=== PATIENT | male | born 1955 | race Caucasian/White ===

== ENCOUNTER 2025-01-16 06:56 | Emergency (ER) | payer OTHER, MEDICAID ==
[2025-01-16 07:18] LABS: #Basophils 0.1 thou/uL (0.0-0.2); #Eosinophils 0.0 thou/uL (0.0-0.7); #Lymphocytes 1.6 thou/uL (1.20-3.40); #Monocytes 1.2 thou/uL (0.11-0.59); #Neutrophils 14.2 thou/uL (1.40-6.50); %Basophils 0.4 % (0.0-1.0); %Eosinophils 0.0 % (0.0-10.0); %Lymphocytes 9.3 % (21.0-51.0); %Monocytes 6.9 % (0.0-10.0); %Neutrophils 83.4 % (42.0-75.0); Hematocrit 44.4 % (42.0-52.0); Hemoglobin 14.9 g/dL (14.0-18.0); Mean Corpuscular Hemoglobin 31.1 pg (27.0-31.0); Mean Corpuscular Volume 92.4 fl (78.0-98.0); Platelet Count 249 10x3/uL (130-400); Red Blood Cell (RBC) Count 4.80 mill/uL (4.70-6.10); White Blood Cell (WBC) Count 17.1 10x3/uL (4.8-10.8)
[2025-01-16] MEDS ORDERED: dilTIAZem 25 MG/5 ML VIAL ONE (07:26)
[2025-01-16 07:44] LABS: Troponin I 0.173 ng/mL (< 0.028)
[2025-01-16 07:49] LABS: ALT (SGPT) 2111 U/L (Less than 45); Albumin 3.5 g/dL (3.1-4.5); Alkaline Phosphatase 107 U/L (40-110); Anion Gap 33 mmol/L (10-20); BUN (Urea Nitrogen) 55 mg/dL (8.4-25.7); Bilirubin, Total 3.5 mg/dL (0.3-1.2); Calc. Creatinine Clearance 0 mL/min (70-130); Calcium 9.2 mg/dL (7.8-10.44); Chloride 96 mmol/L (98-107); Globulin 3.2 g/dL (2.4-3.5); Glucose 68 mg/dL (80-115); Sodium 130 mmol/L (136-145)
[2025-01-16 07:54] LABS: Carbon Dioxide 8 mmol/L (23-31); Potassium 6.6 mmol/L (3.5-5.1)
[2025-01-16 07:58] LABS: AST (SGOT) Greater than 4001 U/L (11-34)
[2025-01-16] MEDS ORDERED: Albuterol 2.5 MG (3 mL) NEB ONE (07:58)
[2025-01-16] MEDS ORDERED: Albuterol 2.5 MG (0.5 mL) NEB ONE (07:59)
[2025-01-16] MEDS ORDERED: Dextrose 50% Abboject 50 ML SYRINGE ONE (08:07)
[2025-01-16] MEDS ORDERED: Calcium Gluc 4.6 MEQ/10 ML (100 MG/ML) ONE (08:08)
[2025-01-16] MEDS ORDERED: Calcium Chloride 1 GM/10 ML Abboject SYRINGE ONE (08:08)
[2025-01-16 08:12] LABS: Bicarbonate (HCO3v) 12.4 mmol/L (22.0-28.0); CO2 Tension (PvCO2) 32.4 mmHg (42.0-51.0); Calcium, Ionized 1.07 mmol/L (1.15-1.33); Chloride 101 mmol/L (98-107); Hemoglobin - Calc 16.6 g/dL (14.0-18.0); Potassium 5.9 mmol/L (3.5-5.1); Sodium 130 mmol/L (138-145); T. Carbon Dioxide 13.4 mmol/L (22.0-28.0); vO2 Saturation-calc 87.7 % (60.0-85.0)
[2025-01-16] MEDS ORDERED: Heparin 10,000 UNITS/ 10 ML VIAL ONE (08:20)
[2025-01-16] MEDS ORDERED: Cefepime 2 GM VIAL ONE (08:25)
[2025-01-17 13:55] LABS: Bicarbonate (HCO3v) 11.4 mmol/L (22.0-28.0); CO2 Tension (PvCO2) 27.6 mmHg (42.0-51.0); Calcium, Ionized 1.01 mmol/L (1.15-1.33); Chloride 101.0 mmol/L (98-107); Hemoglobin - Calc 15.2 g/dL (14.0-18.0); Potassium 5.8 mmol/L (3.5-5.1); Sodium 129.0 mmol/L (138-145); T. Carbon Dioxide 12.3 mmol/L (22.0-28.0); vO2 Saturation-calc 97.5 % (60.0-85.0)
== END 2025-01-16 09:15 | disposition short-term general hospital (02) ==
LOC: BURERS 06:56
DX: I48.91 Unspecified atrial fibrillation (principal); E87.5 Hyperkalemia; E87.20 Acidosis, unspecified; R06.89 Other abnormalities of breathing; R74.01 Elevation of levels of liver transaminase levels; F17.210 Nicotine dependence, cigarettes, uncomplicated
CPT/HCPCS: 36415; 71045; 80053; 82330; 82550; 82803; 83605; 83880; 84484; 85025; 85730; 87040; 93005; 96365; 96366; 96368; 96375; J0612; J0692; J1644; J1815; J2270; J7611; J7999

== ENCOUNTER 2025-02-09 15:34 | Emergency (ER) | payer OTHER, MEDICAID ==
[2025-02-09] MEDS ORDERED: Aspirin Chewable 81 MG TAB ONE (16:00)
[2025-02-09] MEDS ORDERED: Acetaminophen 500 MG TAB ONE (16:00)
[2025-02-09 16:23] LABS: #Basophils 0.1 thou/uL (0.0-0.2); #Eosinophils 0.2 thou/uL (0.0-0.7); #Lymphocytes 1.0 thou/uL (1.20-3.40); #Monocytes 0.5 thou/uL (0.11-0.59); #Neutrophils 4.7 thou/uL (1.40-6.50); %Basophils 1.3 % (0.0-1.0); %Eosinophils 3.4 % (0.0-10.0); %Lymphocytes 15.7 % (21.0-51.0); %Monocytes 7.1 % (0.0-10.0); %Neutrophils 72.5 % (42.0-75.0); Hematocrit 39.4 % (42.0-52.0); Hemoglobin 13.6 g/dL (14.0-18.0); Mean Corpuscular Hemoglobin 30.6 pg (27.0-31.0); Mean Corpuscular Volume 88.5 fl (78.0-98.0); Platelet Count 424 10x3/uL (130-400); Red Blood Cell (RBC) Count 4.45 mill/uL (4.70-6.10); White Blood Cell (WBC) Count 6.4 10x3/uL (4.8-10.8)
[2025-02-09 16:29] LABS: INR-International Normal Ratio 1.2; Prothrombin Time 14.9 sec (12.0-14.7)
[2025-02-09 16:30] LABS: PTT 35.7 sec (22.9-36.1)
[2025-02-09 16:36] LABS: Troponin I Less than 0.010 ng/mL (< 0.028)
[2025-02-09 16:37] LABS: ALT (SGPT) 43 U/L (Less than 45); AST (SGOT) 45 U/L (11-34); Albumin 3.4 g/dL (3.1-4.5); Alkaline Phosphatase 92 U/L (40-110); Anion Gap 16 mmol/L (10-20); BUN (Urea Nitrogen) 11 mg/dL (8.4-25.7); Bilirubin, Total 1.4 mg/dL (0.3-1.2); Calc. Creatinine Clearance 0 mL/min (70-130); Calcium 8.6 mg/dL (7.8-10.44); Carbon Dioxide 17 mmol/L (23-31); Chloride 109 mmol/L (98-107); Globulin 3.5 g/dL (2.4-3.5); Glucose 148 mg/dL (80-115); Lipase 91 U/L (8-78); Magnesium 1.5 mg/dL (1.6-2.6); Potassium 3.4 mmol/L (3.5-5.1); Sodium 139 mmol/L (136-145)
[2025-02-09 16:44] LABS: Glucose, Urine (Dipstick) 500 mg/dL (Negative); Leukocyte Negative (Negative); Protein, Urine (Dipstick) Negative (Neg-Trace); Specific Gravity, Urine 1.015 (1.005-1.030)
[2025-02-09 16:54] LABS: CAUTI Indications for Culture Pelvic or flank pain; RBC/HPF 0-3 HPF (0-3); WBC/HPF 0-3 HPF (0-3)
[2025-02-09 16:55] LABS: Bacteria/HPF 1+ HPF (None Seen); Urine Culture Reflex No No
[2025-02-09] MEDS ORDERED: Magnesium 2 GM/50 ML BAG (IN WATER) ONE (17:12)
== END 2025-02-09 18:32 | disposition home or self-care (01) ==
LOC: BURERS 15:34
DX: E87.6 Hypokalemia (principal); E83.42 Hypomagnesemia; I48.91 Unspecified atrial fibrillation; K21.9 Gastro-esophageal reflux disease without esophagitis; E11.9 Type 2 diabetes mellitus without complications; I50.9 Heart failure, unspecified; F17.210 Nicotine dependence, cigarettes, uncomplicated; Z79.01 Long term (current) use of anticoagulants; Z79.899 Other long term (current) drug therapy
CPT/HCPCS: 71045; 80053; 81001; 83690; 83735; 83880; 84484; 85025; 85610; 85730; 93005; 96365; 99284; J3475; 36415